=== PATIENT | male | born 1975 | race Asian ===

== ENCOUNTER 2019-05-04 19:23 | Emergency (ER) | payer OTHER, MEDICAID ==
[~2019-05-04] VITALS: Ht 195.6 cm; Wt 148.3 kg
[2019-05-04] MEDS ORDERED: IBUPROFEN 600 MG TAB PO ONE (19:45)
[2019-05-04 20:43] VITALS: BP 143/100
== END 2019-05-04 20:43 | disposition home or self-care (01) ==
LOC: ER 19:30
DX: M77.52 Other enthesopathy of left foot and ankle (principal); I50.9 Heart failure, unspecified; Z86.73 Personal history of transient ischemic attack (TIA), and cerebral infarction without residual deficits
CPT/HCPCS: 73610